=== PATIENT | male | born 1970 | race Caucasian/White ===

== ENCOUNTER 2025-05-02 14:57 | Outpatient (CLI) | payer MEDICAID, SELFPAY ==
--- NOTE | 2025-05-02 15:09 | XR_ITS ---
WS: [id number] Left knee, 3 views, Clinical Data: pain/swelling of left knee Comparison: None. Findings: No fractures or dislocations are seen. The joint spaces are normal. The patella is intact. The soft tissues are unremarkable. The lateral was not positioned because of the patient's discomfort. XR/XR knee LT 3V* [id number] Impression: Negative left knee.
== END 2025-05-02 14:58 | disposition home or self-care (01) ==
LOC: RAD 15:01
PROVIDERS: PCP Registered Nurse; Visit Provider Nurse Practitioner
DX: S89.92XA Unspecified injury of left lower leg, initial encounter (principal); X58.XXXA Exposure to other specified factors, initial encounter
CPT/HCPCS: 73562